=== PATIENT | male | born 1945 | race Caucasian/White ===

== ENCOUNTER 2021-08-21 13:42 | Observation (INO) | payer MEDICARE, OTHER ==
[2021-08-21] VITALS (10 sets, daily range): BP systolic 144–166; BP diastolic 58–74
[~2021-08-21] VITALS: Ht 167.6 cm; Wt 103.4 kg
[2021-08-21] MEDS: ISOSORBIDE DIN. (ISORDIL) 20 MG TAB PO SCH (00:04)
[2021-08-21] MEDS: DOXAZOSIN MESYLATE 4 MG TAB PO SCH (00:04)
[2021-08-21 15:41] LABS: BASO % 0.3 % (0.0-1.0); EOS # 0.2 10^3/uL (0.0-0.5); EOS % 3.2 % (0.0-3.0); HEMATOCRIT 22.8 % (42.0-52.0); HEMOGLOBIN 7.1 g/dl (13.5-17.5); INR 0.92; LYMPH # 0.5 10^3/uL (1.5-5.0); LYMPH % 7.8 % (24.0-44.0); MEAN CORPUSCULAR HEMOGLOBIN 28.7 pg (27.0-33.0); MEAN CORPUSCULAR HGB CONC 31.1 g/dl (32.0-36.5); MEAN CORPUSCULAR VOLUME 92.3 fl (80.0-96.0); MONO # 0.6 10^3/uL (0.0-0.8); MONO % 8.9 % (2.0-8.0); NEUTROPHILS # 4.8 10^3/uL (1.5-8.5); NEUTROPHILS % 78.3 % (36.0-66.0); PLATELET COUNT, AUTOMATED 204 10^3/uL (150-450); PROTHROMBIN TIME 12.8 SECONDS (12.7-14.5); RED BLOOD COUNT 2.47 10^6/uL (4.30-6.10); WHITE BLOOD COUNT 6.2 10^3/uL (4.0-10.0)
[2021-08-21 15:42] LABS: PARTIAL THROMBOPLASTIN TIME 33.8 SECONDS (25.9-37.0)
[2021-08-21 16:10] LABS: CALCIUM LEVEL 8.7 MG/DL (8.8-10.2); CREATININE FOR GFR 2.29 MG/DL (0.70-1.30); GLOMERULAR FILTRATION RATE 29.8 (>42); PERCENT SATURATION 7.5 % (19.7-50.0)
[2021-08-21] MEDS ORDERED: GLUCOSE 4GM CHEW TABLET PO PRN (17:10)
[2021-08-21] MEDS ORDERED: GLUCAGON INJ 1MG VIAL SC PRN (17:10)
[2021-08-21] MEDS ORDERED: DEXTROSE 50% 50 ML SYRINGE IV PRN (17:10)
[2021-08-21] MEDS ORDERED: FUROSEMIDE 20MG/2ML VIAL (J1940) IV ONE (17:10)
[2021-08-21] MEDS ORDERED: ACETAMINOPHEN TAB 650MG DOSE (2X325MG) PO PRN (17:25)
[2021-08-21 17:57] LABS: RSV AMPLIFICATION NEGATIVE (NEGATIVE)
[2021-08-21] MEDS ORDERED: ASPI-161 PO (18:51)
[2021-08-21] MEDS ORDERED: AMLO1TAB25 PO (18:51)
[2021-08-21] MEDS ORDERED: CARV12.5 PO (18:51)
[2021-08-21] MEDS ORDERED: BIMA01SOL OU (18:51)
[2021-08-21] MEDS ORDERED: CRES20TA2 PO (18:51)
[2021-08-21] MEDS ORDERED: ALBU8.5H INH (18:51)
[2021-08-21] MEDS ORDERED: CETI-25 PO (18:51)
[2021-08-21] MEDS ORDERED: ALLO300T2 PO (18:51)
[2021-08-21] MEDS ORDERED: LIDO5TD TOP (18:51)
[2021-08-21] MEDS ORDERED: CYCL-707 PO (18:51)
[2021-08-21] MEDS ORDERED: VITA100093 PO (18:51)
[2021-08-21] MEDS ORDERED: DOXA4TAB2 PO (18:51)
[2021-08-21] MEDS ORDERED: ISOR1TAB2 PO (18:51)
[2021-08-21] MEDS ORDERED: CYAN2500 SL (18:51)
[2021-08-21] MEDS ORDERED: RETA2000 INJ (18:51)
[2021-08-21] MEDS ORDERED: VITMTA PO (18:51)
[2021-08-21] MEDS ORDERED: LEVO50TA45 PO (18:51)
[2021-08-21] MEDS ORDERED: LASI40TA9 PO (18:51)
[2021-08-21] MEDS ORDERED: HYDR100T PO (18:51)
[2021-08-21] MEDS ORDERED: ADVA115A INH (18:51)
[2021-08-21] MEDS ORDERED: HOME MED LIST COMPLETE! XX SCH (18:55)
[2021-08-21] MEDS ORDERED: LIDOCAINE 5% (LIDODERM) PATCH TOP PRN (19:00)
[2021-08-21] MEDS ORDERED: ALBUTEROL 90 MCG/ACT 8GM HFA INHALER INH PRN (19:00)
[2021-08-21] MEDS ORDERED: CYCLOBENZAPRINE 10MG TABLET PO PRN (19:00)
[2021-08-21] MEDS: ADVAIR HFA 115/21MCG INHALER INH SCH (20:00)
[2021-08-21] MEDS: INSULIN LISPRO (NovoLOG) PER UNIT SC SCH (20:40)
[2021-08-21] MEDS ORDERED: FERRIC CARBOXYMALTOSE INJ 750 MG, VIAL MATE ADAPTER 1 EACH in NS 250 ML IV ONE (21:00)
[2021-08-21] MEDS: **NOTE PATIENT COMMENT** MISC XX SCH (21:00)
[2021-08-21] MEDS ORDERED: INSULIN LISPRO (NovoLOG) PER UNIT SC SCH (21:00)
[2021-08-21] MEDS: **hydrALAZINE** 50 MG TAB PO SCH (22:02)
[2021-08-21] MEDS: ROSUVASTATIN 10 MG TAB (CRESTOR) PO SCH (22:03)
[2021-08-21] MEDS: CARVedilol 12.5 MG TAB PO SCH (22:03)
[2021-08-21] MEDS: NEPHRO-VIT TAB (NEPHROCAPS) PO SCH (23:44)
[2021-08-22] VITALS (9 sets, daily range): BP systolic 124–149; BP diastolic 45–73
[2021-08-22] MEDS: LEVOTHYROXINE 50MCG TABLET (0.05MG) PO SCH (05:34)
[2021-08-22 07:00] LABS: HEMATOCRIT 23.9 % (42.0-52.0); HEMOGLOBIN 7.7 g/dl (13.5-17.5); MEAN CORPUSCULAR HEMOGLOBIN 29.2 pg (27.0-33.0); MEAN CORPUSCULAR HGB CONC 32.2 g/dl (32.0-36.5); MEAN CORPUSCULAR VOLUME 90.5 fl (80.0-96.0); PLATELET COUNT, AUTOMATED 177 10^3/uL (150-450); RED BLOOD COUNT 2.64 10^6/uL (4.30-6.10); WHITE BLOOD COUNT 5.4 10^3/uL (4.0-10.0)
[2021-08-22] MEDS: ADVAIR HFA 115/21MCG INHALER INH SCH ×2 (07:13→19:25)
[2021-08-22] MEDS: INSULIN LISPRO (NovoLOG) PER UNIT SC SCH ×3 (07:19→18:00)
[2021-08-22] MEDS: MULTIVITAMINS/MINERALS THERAP 1 TAB PO SCH (07:22)
[2021-08-22] MEDS: **hydrALAZINE** 50 MG TAB PO SCH ×3 (07:22→20:05)
[2021-08-22] MEDS: ASPIRIN 81MG ENTERIC TABLET PO SCH (07:22)
[2021-08-22] MEDS: allopurinoL 300 MG TAB PO SCH (07:22)
[2021-08-22] MEDS: CETIRIZINE (ZyrTEC) 10 MG TAB PO SCH (07:23)
[2021-08-22] MEDS: CARVedilol 12.5 MG TAB PO SCH ×2 (07:23→20:06)
[2021-08-22] MEDS: ISOSORBIDE DIN. (ISORDIL) 20 MG TAB PO SCH ×3 (10:13→20:07)
[2021-08-22] MEDS: VITAMIN D 1,000 INTERNATIONAL UNITS TABLET PO SCH (12:55)
[2021-08-22 14:02] LABS: HEMATOCRIT 25.4 % (42.0-52.0); HEMOGLOBIN 8.1 g/dl (13.5-17.5)
[2021-08-22 14:24] LABS: CALCIUM LEVEL 8.9 MG/DL (8.8-10.2); CREATININE FOR GFR 2.12 MG/DL (0.70-1.30); GLOMERULAR FILTRATION RATE 32.6 (>42); POTASSIUM SERUM 3.9 MEQ/L (3.5-5.1)
[2021-08-22] MEDS ORDERED: GLUCOSE 4GM CHEW TABLET PO PRN (16:40)
[2021-08-22] MEDS ORDERED: DEXTROSE 50% 50 ML SYRINGE IV PRN (16:40)
[2021-08-22] MEDS ORDERED: GLUCAGON INJ 1MG VIAL SC PRN (16:40)
[2021-08-22] MEDS ORDERED: MOM 30ML SUSPENSION UDC PO STA (18:27)
[2021-08-22] MEDS ORDERED: MOM 30ML SUSPENSION UDC PO ONE (18:30)
[2021-08-22] MEDS ORDERED: GOLYTELY SOLN 4000 ML BTL PO ONE (18:35)
[2021-08-22] MEDS ORDERED: POLYETHYLENE GLYCOL (MIRALAX) 238GM BOTTLE PO ONE (20:00)
[2021-08-22] MEDS: NEPHRO-VIT TAB (NEPHROCAPS) PO SCH (20:05)
[2021-08-22] MEDS: ROSUVASTATIN 10 MG TAB (CRESTOR) PO SCH (20:06)
[2021-08-22] MEDS: DOXAZOSIN MESYLATE 4 MG TAB PO SCH (20:06)
[2021-08-22] MEDS: **NOTE PATIENT COMMENT** MISC XX SCH (20:08)
[2021-08-22 22:06] LABS: HEMATOCRIT 29.2 % (42.0-52.0); HEMOGLOBIN 9.4 g/dl (13.5-17.5)
[2021-08-23] VITALS (8 sets, daily range): BP systolic 146–167; BP diastolic 57–89
[2021-08-23] MEDS: LEVOTHYROXINE 50MCG TABLET (0.05MG) PO SCH (05:16)
[2021-08-23] MEDS: INSULIN LISPRO (NovoLOG) PER UNIT SC SCH ×3 (06:00→12:00)
[2021-08-23 06:32] LABS: HEMATOCRIT 25.5 % (42.0-52.0); HEMOGLOBIN 8.1 g/dl (13.5-17.5); MEAN CORPUSCULAR HEMOGLOBIN 28.3 pg (27.0-33.0); MEAN CORPUSCULAR HGB CONC 31.8 g/dl (32.0-36.5); MEAN CORPUSCULAR VOLUME 89.2 fl (80.0-96.0); PLATELET COUNT, AUTOMATED 185 10^3/uL (150-450); RED BLOOD COUNT 2.86 10^6/uL (4.30-6.10); WHITE BLOOD COUNT 5.4 10^3/uL (4.0-10.0)
[2021-08-23 06:54] LABS: CALCIUM LEVEL 8.4 MG/DL (8.8-10.2); CREATININE FOR GFR 2.04 MG/DL (0.70-1.30); GLOMERULAR FILTRATION RATE 34.1 (>42); POTASSIUM SERUM 3.6 MEQ/L (3.5-5.1)
[2021-08-23] MEDS: ADVAIR HFA 115/21MCG INHALER INH SCH (07:19)
[2021-08-23] MEDS ORDERED: fentaNYL 100 MCG/2 ML INJECTION As Ordered ONE (09:34)
[2021-08-23] MEDS ORDERED: LIDOCAINE 2% 100MG/5ML SDV (FOR ANES.) As Ordered ONE (09:34)
[2021-08-23] MEDS ORDERED: propofoL 500 MG/50 ML VIAL As Ordered ONE (09:34)
[2021-08-23] MEDS ORDERED: SIMETHICONE 40MG/0.6ML DROPS 30ML As Ordered ONE (09:36)
[2021-08-23] MEDS ORDERED: ePHEDrine SULFATE 25 MG/5 ML(5MG/ML) SYRINGE As Ordered ONE (09:37)
[2021-08-23] MEDS ORDERED: ONDANSETRON 4MG/2ML VIAL IV PRN (10:10)
[2021-08-23] MEDS ORDERED: INSULIN LISPRO (NovoLOG) PER UNIT SC PRN (10:10)
[2021-08-23] MEDS ORDERED: LR 1,000 ML IV SCH (10:10)
[2021-08-23] MEDS ORDERED: propofoL 200 MG/20 ML VIAL As Ordered ONE (10:16)
[2021-08-23] MEDS: **hydrALAZINE** 50 MG TAB PO SCH ×2 (12:14→15:12)
[2021-08-23] MEDS: CARVedilol 12.5 MG TAB PO SCH (12:15)
[2021-08-23] MEDS: ISOSORBIDE DIN. (ISORDIL) 20 MG TAB PO SCH ×2 (12:16→15:12)
[2021-08-23] MEDS: allopurinoL 300 MG TAB PO SCH (12:19)
[2021-08-23] MEDS: ASPIRIN 81MG ENTERIC TABLET PO SCH (12:20)
[2021-08-23] MEDS: CETIRIZINE (ZyrTEC) 10 MG TAB PO SCH (12:20)
[2021-08-23] MEDS: MULTIVITAMINS/MINERALS THERAP 1 TAB PO SCH (12:20)
[2021-08-23] MEDS: VITAMIN D 1,000 INTERNATIONAL UNITS TABLET PO SCH (12:20)
[2021-08-23] MEDS ORDERED: FERR325T3 PO (15:11)
[2021-08-23] MEDS ORDERED: TRIPCAP PO (15:11)
== END 2021-08-23 17:34 | disposition home or self-care (01) ==
LOC: M ED 13:42 → M ED INP 13:43 → ENRESERV 18:00 → M MS5PR 19:11 → M MSPAV 08-22 13:00
PROVIDERS: ADMIT Internal Medicine; ATTEND Internal Medicine
DX: D12.0 Benign neoplasm of cecum (principal); D12.3 Benign neoplasm of transverse colon; D12.4 Benign neoplasm of descending colon; C18.7 Malignant neoplasm of sigmoid colon; K57.30 Diverticulosis of large intestine without perforation or abscess without bleeding; K62.7 Radiation proctitis; D63.1 Anemia in chronic kidney disease; D50.0 Iron deficiency anemia secondary to blood loss (chronic); D17.79 Benign lipomatous neoplasm of other sites; K92.2 Gastrointestinal hemorrhage, unspecified; N18.4 Chronic kidney disease, stage 4 (severe); E11.22 Type 2 diabetes mellitus with diabetic chronic kidney disease; I13.0 Hypertensive heart and chronic kidney disease with heart failure and stage 1 through stage 4 chronic kidney disease, or unspecified chronic kidney disease; E78.5 Hyperlipidemia, unspecified; G47.33 Obstructive sleep apnea (adult) (pediatric); E03.9 Hypothyroidism, unspecified; M54.9 Dorsalgia, unspecified; G89.29 Other chronic pain; Z85.46 Personal history of malignant neoplasm of prostate; Z87.891 Personal history of nicotine dependence; Z79.899 Other long term (current) drug therapy; Z79.82 Long term (current) use of aspirin; Z79.51 Long term (current) use of inhaled steroids; Z79.890 Hormone replacement therapy
CPT/HCPCS: 36415; 36430; 43235; 45380; 45381; 80048; 82270; 82728; 83550; 85014; 85018; 85025; 85027; 85046; 85610; 85730; 86850; 86900; 86901; 86920; 87631; 88305; 94640; 96374; 96375; 99285; G0378; J1439; J1940; J3010; P9016